=== PATIENT | female | born 1985 | race Caucasian/White ===

== ENCOUNTER → 2017-11-19 | Outpatient (REF) | payer BC ==
[2017-11-20 12:33] LABS: CHLAMYDIA DNA AMPLIFICATION NEGATIVE (NEGATIVE); GC DNA AMPLIFICATION NEGATIVE (NEGATIVE)
== END ==
LOC: M LAB REF 09:33
DX: R10.30 Lower abdominal pain, unspecified (principal)
CPT/HCPCS: 87186; 87591

== ENCOUNTER → 2017-11-20 | Outpatient (REF) | payer BC ==
[2017-11-20 18:31] LABS: BASO % 0.2 % (0.0-1.0); EOS # 0.1 10^3/uL (0.0-0.50); EOS % 0.5 % (0.0-3.0); HEMATOCRIT 32.6 % (36.0-47.0); HEMOGLOBIN 10.5 g/dl (12.0-15.5); IMMATURE GRANULOCYTE % 0.5 % (0-3.0); LYMPH # 1.6 10^3/uL (1.5-4.5); LYMPH % 16.4 % (24.0-44.0); MEAN CORPUSCULAR HEMOGLOBIN 28.6 pg (27.0-33.0); MEAN CORPUSCULAR HGB CONC 32.2 g/dl (32.0-36.5); MEAN CORPUSCULAR VOLUME 88.8 fl (80.0-96.0); MONO # 0.7 10^3/uL (0.0-0.8); MONO % 7.2 % (0.0-5.0); NEUTROPHILS # 7.5 10^3/uL (1.8-7.7); NEUTROPHILS % 75.2 % (36.0-66.0); PLATELET COUNT, AUTOMATED 204 10^3/uL (150-450); RED BLOOD COUNT 3.67 10^6/uL (4.00-5.40)
[2017-11-20 18:47] LABS: ALBUMIN 3.1 GM/DL (3.2-5.2); ALBUMIN/GLOBULIN RATIO 0.91 (1.00-1.93); ALKALINE PHOSPHATASE 68 U/L (45-117); ALT/SGPT 17 U/L (12-78); ANION GAP 7 MEQ/L (8-16); AST/SGOT 9 U/L (7-37); BILIRUBIN,TOTAL 0.3 MG/DL (0.2-1.0); BLOOD UREA NITROGEN 9 MG/DL (7-18); CALCIUM LEVEL 8.3 MG/DL (8.5-10.1); CARBON DIOXIDE LEVEL 25 MEQ/L (21-32); CHLORIDE LEVEL 109 MEQ/L (98-107); GLOMERULAR FILTRATION RATE > 60.0 (>60); GLUCOSE, FASTING 99 MG/DL (70-100); POTASSIUM SERUM 4.8 MEQ/L (3.5-5.1); SODIUM LEVEL 141 MEQ/L (136-145); TOTAL PROTEIN 6.5 GM/DL (6.4-8.2)
[2017-11-20 19:08] LABS: ERYTHROCYTE SEDIMENTATION RATE 62 mm/hr (0-20)
== END ==
LOC: M LAB REF 17:33
DX: R10.30 Lower abdominal pain, unspecified (principal)
CPT/HCPCS: 80053

== ENCOUNTER 2017-11-22 13:03 | Inpatient (IN) | payer BC ==
[~2017-11-22 13:03] MED LIST: ACETAMINOPHEN TAB 650MG DOSE (2X325MG) PO; MORPHINE 4 MG/ML 1ML VIAL/SYRINGE (J2270) IV; ONDANSETRON 4MG/2ML VIAL (J2405) IV
[2017-11-22] MEDS: NS 1,000 ML IV ×2 (13:45→15:32)
[2017-11-22] MEDS ORDERED: ONDANSETRON 4MG/2ML VIAL (J2405) IV (15:45)
[2017-11-22] MEDS: KETOROLAC 30 MG/ML VIAL (J1885) IV (16:03)
[2017-11-22] MEDS: cefTRIAXone SOD 1 GM in D5W MINI-BAG PLUS 50 ML IV (17:14)
[2017-11-22 17:21] LABS: BASO % 0.2 % (0.0-1.0); HEMATOCRIT 28.1 % (36.0-47.0); HEMOGLOBIN 9.3 g/dl (12.0-15.5); IMMATURE GRANULOCYTE % 0.7 % (0-3.0); LYMPH # 1.9 10^3/uL (1.5-4.5); LYMPH % 11.6 % (24.0-44.0); MEAN CORPUSCULAR HEMOGLOBIN 28.6 pg (27.0-33.0); MEAN CORPUSCULAR HGB CONC 33.1 g/dl (32.0-36.5); MEAN CORPUSCULAR VOLUME 86.5 fl (80.0-96.0); MONO # 1.1 10^3/uL (0.0-0.8); MONO % 6.5 % (0.0-5.0); NEUTROPHILS # 13.5 10^3/uL (1.8-7.7); PLATELET COUNT, AUTOMATED 206 10^3/uL (150-450); RED BLOOD COUNT 3.25 10^6/uL (4.00-5.40); RED CELL DISTRIBUTION WIDTH 13.7 % (11.5-14.5); WHITE BLOOD COUNT 16.7 10^3/uL (4.0-10.0)
[2017-11-22 17:32] LABS: FIBRINOGEN 785 MG/DL (221-452); INR 1.11; PROTHROMBIN TIME 14.5 SECONDS (12.1-14.4)
[2017-11-22 18:29] LABS: FREE THYROXINE INDEX 3.9 % (1.3-4.8); T UPTAKE 31 % (30-39); THYROXINE (T4) 12.6 UG/DL (4.5-12.0)
[2017-11-22 18:29] LABS: LIPASE 88 U/L (73-393)
[2017-11-22] MEDS: ACETAMINOPHEN TAB 650MG DOSE (2X325MG) PO (19:58)
[2017-11-22] MEDS ORDERED: cefTRIAXone SOD 1 GM in D5W MINI-BAG PLUS 50 ML IV (20:00)
[2017-11-22] MEDS: PROMETHAZINE INJ 25 MG/ML VIAL (J2550) IV (20:04)
[2017-11-23] MEDS: NS 1,000 ML IV ×3 (01:32→21:38)
[2017-11-23] MEDS: cefTRIAXone SOD 1 GM in D5W MINI-BAG PLUS 50 ML IV ×2 (03:21→16:16)
[2017-11-23] MEDS: KETOROLAC 30 MG/ML VIAL (J1885) IV (03:21)
[2017-11-23] MEDS: ACETAMINOPHEN TAB 650MG DOSE (2X325MG) PO ×4 (03:21→20:36)
[2017-11-23 05:53] LABS: APPEARANCE, URINE CLEAR (CLEAR); BACTERIA, URINE AUTO 1+ (NEGATIVE); BILIRUBIN, URINE AUTO NEGATIVE (NEGATIVE); BLOOD, URINE BLOOD NEGATIVE (NEGATIVE); COLOR, URINE YELLOW (YELLOW); GLUCOSE, URINE (UA) AUTO NEGATIVE (NEGATIVE); KETONE, URINE AUTO NEGATIVE (NEGATIVE); LEUKOCYTE ESTERASE, URINE AUTO NEGATIVE (NEGATIVE); NITRITE, URINE AUTO NEGATIVE (NEGATIVE); PROTEIN, URINE AUTO NEGATIVE (NEGATIVE); RBC, URINE AUTO 3 /HPF (0-3); SPECIFIC GRAVITY URINE AUTO 1.011 (1.002-1.035); SQUAMOUS EPITHELIAL CELL UR AU 0 /HPF (0-6); UROBILINOGEN, URINE AUTO 0.2 mg/dL (0.0-2.0); WBC, URINE AUTO 6 /HPF (0-3)
[2017-11-23 06:38] LABS: BASO % 0.2 % (0.0-1.0); EOS % 0.2 % (0.0-3.0); HEMATOCRIT 26.4 % (36.0-47.0); HEMOGLOBIN 8.5 g/dl (12.0-15.5); IMMATURE GRANULOCYTE % 0.7 % (0-3.0); LYMPH # 1.5 10^3/uL (1.5-4.5); LYMPH % 14.4 % (24.0-44.0); MEAN CORPUSCULAR HEMOGLOBIN 27.8 pg (27.0-33.0); MEAN CORPUSCULAR HGB CONC 32.2 g/dl (32.0-36.5); MEAN CORPUSCULAR VOLUME 86.3 fl (80.0-96.0); MONO # 0.9 10^3/uL (0.0-0.8); MONO % 8.3 % (0.0-5.0); NEUTROPHILS # 8.1 10^3/uL (1.8-7.7); NEUTROPHILS % 76.2 % (36.0-66.0); PLATELET COUNT, AUTOMATED 202 10^3/uL (150-450); RED BLOOD COUNT 3.06 10^6/uL (4.00-5.40); RED CELL DISTRIBUTION WIDTH 13.9 % (11.5-14.5); WHITE BLOOD COUNT 10.6 10^3/uL (4.0-10.0)
[2017-11-23 06:59] LABS: ALBUMIN 2.2 GM/DL (3.2-5.2); ALBUMIN/GLOBULIN RATIO 0.63 (1.00-1.93); ALKALINE PHOSPHATASE 58 U/L (45-117); ALT/SGPT 14 U/L (12-78); ANION GAP 9 MEQ/L (8-16); AST/SGOT 6 U/L (7-37); BILIRUBIN,TOTAL 0.1 MG/DL (0.2-1.0); BLOOD UREA NITROGEN 7 MG/DL (7-18); CALCIUM LEVEL 7.7 MG/DL (8.5-10.1); CARBON DIOXIDE LEVEL 22 MEQ/L (21-32); CHLORIDE LEVEL 114 MEQ/L (98-107); CREATININE FOR GFR 0.62 MG/DL (0.55-1.30); GLOMERULAR FILTRATION RATE > 60.0 (>60); GLUCOSE, FASTING 97 MG/DL (70-100); POTASSIUM SERUM 3.5 MEQ/L (3.5-5.1); SODIUM LEVEL 145 MEQ/L (136-145); TOTAL PROTEIN 5.7 GM/DL (6.4-8.2)
[2017-11-23] MEDS: [UNRECOGNIZED DRUG - OTHER] PO (08:59)
[2017-11-23] MEDS: FERROUS GLUCONATE 324 MG TAB PO (16:16)
[2017-11-24] MEDS: cefTRIAXone SOD 1 GM in D5W MINI-BAG PLUS 50 ML IV ×2 (04:08→16:26)
[2017-11-24] MEDS: ACETAMINOPHEN TAB 650MG DOSE (2X325MG) PO ×5 (04:17→23:46)
[2017-11-24 05:20] LABS: BASO % 0.3 % (0.0-1.0); EOS # 0.1 10^3/uL (0.0-0.50); EOS % 0.6 % (0.0-3.0); HEMOGLOBIN 8.7 g/dl (12.0-15.5); IMMATURE GRANULOCYTE % 0.5 % (0-3.0); LYMPH # 1.5 10^3/uL (1.5-4.5); LYMPH % 13.7 % (24.0-44.0); MEAN CORPUSCULAR HEMOGLOBIN 27.7 pg (27.0-33.0); MEAN CORPUSCULAR HGB CONC 32.2 g/dl (32.0-36.5); MONO # 0.7 10^3/uL (0.0-0.8); NEUTROPHILS # 8.5 10^3/uL (1.8-7.7); NEUTROPHILS % 78.9 % (36.0-66.0); PLATELET COUNT, AUTOMATED 250 10^3/uL (150-450); RED BLOOD COUNT 3.14 10^6/uL (4.00-5.40); RED CELL DISTRIBUTION WIDTH 13.9 % (11.5-14.5); WHITE BLOOD COUNT 10.8 10^3/uL (4.0-10.0)
[2017-11-24 05:38] LABS: ALBUMIN 2.3 GM/DL (3.2-5.2); ALBUMIN/GLOBULIN RATIO 0.59 (1.00-1.93); ALKALINE PHOSPHATASE 85 U/L (45-117); ALT/SGPT 17 U/L (12-78); ANION GAP 10 MEQ/L (8-16); AST/SGOT 9 U/L (7-37); BILIRUBIN,TOTAL 0.2 MG/DL (0.2-1.0); BLOOD UREA NITROGEN 4 MG/DL (7-18); CALCIUM LEVEL 7.8 MG/DL (8.5-10.1); CARBON DIOXIDE LEVEL 21 MEQ/L (21-32); CHLORIDE LEVEL 111 MEQ/L (98-107); CREATININE FOR GFR 0.57 MG/DL (0.55-1.30); GLOMERULAR FILTRATION RATE > 60.0 (>60); GLUCOSE, FASTING 109 MG/DL (70-100); POTASSIUM SERUM 3.4 MEQ/L (3.5-5.1); SODIUM LEVEL 142 MEQ/L (136-145); TOTAL PROTEIN 6.2 GM/DL (6.4-8.2)
[2017-11-24 07:05] LABS: RETICULOCYTE # 34.3 10^9/L (17-77); RETICULOCYTE % 1.1 % (0.5-1.5)
[2017-11-24 07:14] LABS: FERRITIN 78 NG/ML (8-252); IRON (FE) 26 UG/DL (50-170); MAGNESIUM LEVEL 1.6 MG/DL (1.8-2.4); PERCENT SATURATION 7.9 % (13.2-45.0); TOTAL IRON BINDING CAPACITY 330 UG/DL (250-450)
[2017-11-24 07:46] LABS: REASON FOR REVIEW RBC MORPHOLOGY; SLIDE REVIEW Report; SOURCE PERIPHERAL SMEAR
[2017-11-24] MEDS: FERROUS GLUCONATE 324 MG TAB PO (08:52)
[2017-11-24] MEDS: POTASSIUM CHLORIDE 10 MEQ SR TABLET PO (08:53)
[2017-11-24] MEDS: MAG SULF 1GM/100ML (MAG RUN) 1 GM in APPROPRIATE DILUENT 1 EA IV (08:53)
[2017-11-24] MEDS: [UNRECOGNIZED DRUG - OTHER] PO (08:53)
[2017-11-24 17:33] LABS: Lyme Disease IgG/IgM Antibodie <0.91 ISR (0.00-0.90); Lyme Disease IgM Ab Quantitati <0.80 index (0.00-0.79)
[2017-11-25 05:13] LABS: BASO % 0.4 % (0.0-1.0); EOS # 0.2 10^3/uL (0.0-0.50); EOS % 2.3 % (0.0-3.0); HEMATOCRIT 28.4 % (36.0-47.0); HEMOGLOBIN 9.2 g/dl (12.0-15.5); IMMATURE GRANULOCYTE % 0.8 % (0-3.0); LYMPH # 1.7 10^3/uL (1.5-4.5); LYMPH % 22.9 % (24.0-44.0); MEAN CORPUSCULAR HEMOGLOBIN 27.8 pg (27.0-33.0); MEAN CORPUSCULAR HGB CONC 32.4 g/dl (32.0-36.5); MEAN CORPUSCULAR VOLUME 85.8 fl (80.0-96.0); MONO # 0.6 10^3/uL (0.0-0.8); MONO % 7.6 % (0.0-5.0); NEUTROPHILS # 4.8 10^3/uL (1.8-7.7); PLATELET COUNT, AUTOMATED 273 10^3/uL (150-450); RED BLOOD COUNT 3.31 10^6/uL (4.00-5.40); RED CELL DISTRIBUTION WIDTH 13.7 % (11.5-14.5); WHITE BLOOD COUNT 7.3 10^3/uL (4.0-10.0)
[2017-11-25 05:31] LABS: ALBUMIN 2.3 GM/DL (3.2-5.2); ALBUMIN/GLOBULIN RATIO 0.53 (1.00-1.93); ALKALINE PHOSPHATASE 90 U/L (45-117); ALT/SGPT 27 U/L (12-78); ANION GAP 9 MEQ/L (8-16); AST/SGOT 15 U/L (7-37); BILIRUBIN,TOTAL 0.2 MG/DL (0.2-1.0); BLOOD UREA NITROGEN 6 MG/DL (7-18); CALCIUM LEVEL 8.1 MG/DL (8.5-10.1); CARBON DIOXIDE LEVEL 24 MEQ/L (21-32); CHLORIDE LEVEL 110 MEQ/L (98-107); CREATININE FOR GFR 0.63 MG/DL (0.55-1.30); GLOMERULAR FILTRATION RATE > 60.0 (>60); GLUCOSE, FASTING 82 MG/DL (70-100); POTASSIUM SERUM 3.7 MEQ/L (3.5-5.1); SODIUM LEVEL 143 MEQ/L (136-145); TOTAL PROTEIN 6.6 GM/DL (6.4-8.2)
[2017-11-25 08:47] LABS: TRANSFERRIN 203 mg/dL (200-370)
[2017-11-25] MEDS: ASCORBIC ACID 500 MG TAB PO (09:09)
[2017-11-25] MEDS: ACETAMINOPHEN TAB 650MG DOSE (2X325MG) PO (09:09)
[2017-11-25] MEDS: CEFUROXIME 500 MG TAB PO (09:09)
[2017-11-25] MEDS: FERROUS GLUCONATE 324 MG TAB PO (09:10)
[2017-11-25] MEDS: [UNRECOGNIZED DRUG - OTHER] PO (09:10)
[2017-11-26 11:12] LABS: ALBUMIN 2.93 GM/DL (3.29-5.55); ALBUMIN % 48.9 % (55.8-66.1); ALPHA-1-GLOBULIN % 9.9 % (2.9-4.9); ALPHA-1-GLOBULINS 0.59 GM/DL (0.17-0.41); ALPHA-2-GLOBULINS 0.95 GM/DL (0.42-0.99); ALPHA-2-GLOBULINS % 15.9 % (7.1-11.8); BETA-1-GLOBULINS 0.43 GM/DL (0.28-0.60); BETA-1-GLOBULINS % 7.1 % (4.7-7.2); BETA-2-GLOBULINS 0.34 GM/DL (0.19-0.55); BETA-2-GLOBULINS % 5.7 % (3.2-6.5); GAMMA GLOBULIN % 12.5 % (11.1-18.8); GAMMA GLOBULINS 0.75 GM/DL (0.65-1.58)
[2017-11-27 00:07] LABS: DEAMIDATED GLIADIN ABS, IgA 3 units (0-19); DEAMIDATED GLIADIN ABS, IgG 1 units (0-19); ENDOMYSIAL ANTIBODY IgA Negative (Negative); IMMUNOGLOBULIN A 134 mg/dL (87-352); t-TRANSGLUTAMINASE(tTG) IgA <2 U/mL (0-3); t-TRANSGLUTAMINASE(tTG) IgG <2 U/mL (0-5)
== END 2017-11-25 11:01 | disposition home or self-care (01) | DRG 724 ==
LOC: M PCU 13:03
DX: A69.20 Lyme disease, unspecified (principal); D68.9 Coagulation defect, unspecified; N39.0 Urinary tract infection, site not specified; N10 Acute pyelonephritis; D50.9 Iron deficiency anemia, unspecified; Z79.899 Other long term (current) drug therapy

== ENCOUNTER → 2017-12-11 | Outpatient (REF) | payer BC ==
[2017-12-11 11:49] LABS: BASO % 0.4 % (0.0-1.0); EOS # 0.3 10^3/uL (0.0-0.50); EOS % 4.6 % (0.0-3.0); HEMATOCRIT 36.3 % (36.0-47.0); HEMOGLOBIN 11.6 g/dl (12.0-15.5); IMMATURE GRANULOCYTE % 0.3 % (0-3.0); LYMPH # 1.9 10^3/uL (1.5-4.5); MEAN CORPUSCULAR HEMOGLOBIN 27.8 pg (27.0-33.0); MEAN CORPUSCULAR VOLUME 87.1 fl (80.0-96.0); MONO # 0.5 10^3/uL (0.0-0.8); MONO % 6.5 % (0.0-5.0); NEUTROPHILS # 4.3 10^3/uL (1.8-7.7); NEUTROPHILS % 61.2 % (36.0-66.0); PLATELET COUNT, AUTOMATED 327 10^3/uL (150-450); RED BLOOD COUNT 4.17 10^6/uL (4.00-5.40); RED CELL DISTRIBUTION WIDTH 14.7 % (11.5-14.5)
[2017-12-11 12:11] LABS: ALBUMIN 3.4 GM/DL (3.2-5.2); ALBUMIN/GLOBULIN RATIO 0.97 (1.00-1.93); ALKALINE PHOSPHATASE 83 U/L (45-117); ALT/SGPT 23 U/L (12-78); ANION GAP 7 MEQ/L (8-16); AST/SGOT 10 U/L (7-37); BILIRUBIN,TOTAL 0.4 MG/DL (0.2-1.0); BLOOD UREA NITROGEN 12 MG/DL (7-18); CALCIUM LEVEL 8.7 MG/DL (8.5-10.1); CARBON DIOXIDE LEVEL 28 MEQ/L (21-32); CHLORIDE LEVEL 106 MEQ/L (98-107); CHOLESTEROL LEVEL 183 MG/DL (<200); CHOLESTEROL RISK RATIO 3.267 (<5); CREATININE FOR GFR 0.81 MG/DL (0.55-1.30); GLOMERULAR FILTRATION RATE > 60.0 (>60); GLUCOSE, FASTING 80 MG/DL (70-100); HDL CHOLESTEROL 56 MG/DL (>40); IRON (FE) 50 UG/DL (50-170); LDL CHOLESTEROL 111.2 MG/DL (<100); NON-HDL-C 127 MG/DL; PERCENT SATURATION 11.6 % (13.2-45.0); POTASSIUM SERUM 4.8 MEQ/L (3.5-5.1); SODIUM LEVEL 141 MEQ/L (136-145); TOTAL IRON BINDING CAPACITY 430 UG/DL (250-450); TOTAL PROTEIN 6.9 GM/DL (6.4-8.2); TRIGLYCERIDES LEVEL 79 MG/DL (<150)
== END ==
LOC: M SFHCPLAZ 08:36
DX: N12 Tubulo-interstitial nephritis, not specified as acute or chronic (principal); D50.0 Iron deficiency anemia secondary to blood loss (chronic); Z13.220 Encounter for screening for lipoid disorders
CPT/HCPCS: 83550

== ENCOUNTER → 2019-01-21 | Outpatient (REF) | payer BC ==
[~2019-01-21] MED LIST changes: -ACETAMINOPHEN TAB 650MG DOSE (2X325MG) PO; +Acetaminophen Tab PO; +CEFU50TA PO; +FERR32TA PO; +HEPA1INJ23 SC; +HYDR-3713 PO; +KETO60IN IV; +LILL1TAB PO; -MORPHINE 4 MG/ML 1ML VIAL/SYRINGE (J2270) IV; +ONDA4VLL IV; -ONDANSETRON 4MG/2ML VIAL (J2405) IV; +PROM25AM IV; +ROCE1INJ6 IV; +VITA500T PO
[2019-01-21 16:50] LABS: BASO % 0.4 % (0.0-1.0); EOS # 0.3 10^3/uL (0.0-0.50); HEMOGLOBIN 13.9 g/dl (12.0-15.5); LYMPH # 2.7 10^3/uL (1.5-4.5); LYMPH % 34.7 % (24.0-44.0); MEAN CORPUSCULAR HEMOGLOBIN 30.5 pg (27.0-33.0); MEAN CORPUSCULAR HGB CONC 33.1 g/dl (32.0-36.5); MEAN CORPUSCULAR VOLUME 92.3 fl (80.0-96.0); MONO # 0.6 10^3/uL (0.0-0.8); MONO % 7.1 % (0.0-5.0); NEUTROPHILS # 4.2 10^3/uL (1.8-7.7); NEUTROPHILS % 53.4 % (36.0-66.0); PLATELET COUNT, AUTOMATED 245 10^3/uL (150-450); RED BLOOD COUNT 4.55 10^6/uL (4.00-5.40); WHITE BLOOD COUNT 7.8 10^3/uL (4.0-10.0)
[2019-01-21 17:06] LABS: ALBUMIN 3.6 GM/DL (3.2-5.2); ALT/SGPT 23 U/L (12-78); BILIRUBIN,TOTAL 0.4 MG/DL (0.2-1.0); BLOOD UREA NITROGEN 11 MG/DL (7-18); CARBON DIOXIDE LEVEL 28 MEQ/L (21-32); CHLORIDE LEVEL 107 MEQ/L (98-107); CHOLESTEROL LEVEL 186 MG/DL (<200); CHOLESTEROL RISK RATIO 3.795 (<5); CREATININE FOR GFR 0.85 MG/DL (0.55-1.30); GLOMERULAR FILTRATION RATE > 60.0 (>60); GLUCOSE, FASTING 81 MG/DL (70-100); HDL CHOLESTEROL 49 MG/DL (>40); IRON (FE) 79 UG/DL (50-170); LDL CHOLESTEROL 111 MG/DL (<100); NON-HDL-C 137 MG/DL; POTASSIUM SERUM 4.8 MEQ/L (3.5-5.1); SODIUM LEVEL 140 MEQ/L (136-145); TOTAL PROTEIN 6.8 GM/DL (6.4-8.2); TRIGLYCERIDES LEVEL 132 MG/DL (<150)
== END ==
LOC: M SFHCCAPE 07:48
PROVIDERS: ATTEND Physician Assistant
DX: Z00.00 Encounter for general adult medical examination without abnormal findings (principal)

== ENCOUNTER → 2019-07-30 | Outpatient (REF) | payer BC ==
[2019-07-30 11:54] LABS: HEMATOCRIT 39.6 % (36.0-47.0); HEMOGLOBIN 13.1 g/dl (12.0-15.5); MEAN CORPUSCULAR HGB CONC 33.1 g/dl (32.0-36.5); MEAN CORPUSCULAR VOLUME 90.6 fl (80.0-96.0); PLATELET COUNT, AUTOMATED 227 10^3/uL (150-450); RED BLOOD COUNT 4.37 10^6/uL (4.00-5.40); WHITE BLOOD COUNT 8.7 10^3/uL (4.0-10.0)
[2019-07-30 12:47] LABS: HEPATITIS B SURFACE ANTIGEN NEGATIVE (NEGATIVE); HEPATITIS C VIRUS ABY INDEX < 0.0 INDEX (<0.8); HIV 1&2 SCREEN CENTAUR NEGATIVE (NEGATIVE); RUBELLA IgG QUALITATIVE IMMUNE (IMMUNE)
[2019-07-30 13:42] LABS: CHLAMYDIA DNA AMPLIFICATION NEGATIVE (NEGATIVE); GC DNA AMPLIFICATION NEGATIVE (NEGATIVE)
== END ==
LOC: M PLALAB 08:22
PROVIDERS: ATTEND Advanced Practice Midwife
DX: Z34.01 Encounter for supervision of normal first pregnancy, first trimester (principal)

== ENCOUNTER → 2019-08-20 | Outpatient (REF) | payer BC | LOC: M PLALAB 11:17 | PROVIDERS: ATTEND Obstetrics & Gynecology | DX: Z34.01 Encounter for supervision of normal first pregnancy, first trimester (principal) ==

== ENCOUNTER → 2019-09-29 | Outpatient (CLI) | payer BC ==
[~2019-09-29] MED LIST changes: +VITA-243 PO; -VITA500T PO
== END ==
LOC: M WHC 11:18
PROVIDERS: ATTEND Advanced Practice Midwife
DX: Z53.9 Procedure and treatment not carried out, unspecified reason (principal); Z34.02 Encounter for supervision of normal first pregnancy, second trimester

== ENCOUNTER → 2019-10-01 | Outpatient (REF) | payer BC | LOC: M PLALAB 08:48 | PROVIDERS: ATTEND Advanced Practice Midwife | DX: O99.212 Obesity complicating pregnancy, second trimester (principal); Z3A.00 Weeks of gestation of pregnancy not specified ==

== ENCOUNTER → 2019-10-13 | Outpatient (CLI) | payer BC ==
--- NOTE | 2019-10-14 02:19 | REP ---
Clinical: Anatomical evaluation. Comparison: None . Findings: Examination demonstrates a single live intrauterine in cephalic presentation. motion is identified by technologist. Placenta is noted posterior fundal and grade I without evidence for placenta previa or abruption. Amniotic fluid volume is normal. Cervix measures 4.1 cm in length and appears closed. Nuchal cord noted. Gestational age by current measurements 18 weeks 5 days with LACHO 03/10/2020 . BPD 4.1 cm 18 weeks 1 day HC 15.9 cm 18 weeks 5 days AC 13.1 cm 18 weeks 5 days FL 3.1 cm 19 weeks 3 days HL 2.7 cm 18 weeks 5 days HC/AC ratio 1.21 Estimated weight 265 grams ( 53rd percentile). Anatomical assessment demonstrates normal structures including cranium, choroid plexus, cavum, cerebellum/posterior fossa, facial features, lungs, diaphragm, stomach, cord insertion/three-vessel cord, kidneys/bladder, spine, and extremities. Impression: 1. Single live intrauterine in cephalic presentation demonstrating appropriate estimated weight. 2. Nuchal cord noted. 3. Limited evaluation of the heart/ventricular outflow tracts may warrant reevaluation and follow-up.
== END ==
LOC: M WHC 13:47
PROVIDERS: ATTEND Advanced Practice Midwife
DX: Z34.02 Encounter for supervision of normal first pregnancy, second trimester (principal); Z36.89 Encounter for other specified antenatal screening; Z3A.18 18 weeks gestation of pregnancy

== ENCOUNTER → 2019-11-07 | Outpatient (CLI) | payer BC ==
--- NOTE | 2019-11-08 07:55 | REP ---
REASON: Followup four-chamber heart and ventricular outflow tracts. In addition, prior examination showed a nuchal cord. Multiple ultrasonographic images of the gravid uterus show a single living intrauterine gestation in the breech presentation. Doppler interrogation of the heart shows a heart rate of 142 beats per minute. The placenta is posterior and not low lying. The cord insertion was noted to be at the inferior edge of the placenta. The subjective amniotic fluid volume is within normal limits. The cervix measures 4.0 cm in length and is closed. Evaluation of the maternal adnexal spaces showed no abnormalities. CHART: BPD 5.1 cm = 21 weeks 3 days HC 19.3 cm = 21 weeks 4 days AC 16.9 cm = 21 weeks 6 days FL 3.6 cm = 21 weeks 2 days The estimated weight is 437 grams, which is at the 24th percentile for a 22-week 2-day gestational age. The four-chamber heart view and both right and left ventricular outflow tracts were seen to be within normal limits. IMPRESSION: Single living intrauterine gestation, as described above, with an estimated gestational age of 21 weeks 2 days via composite criteria and an estimated date of delivery of 03/17/2020 by today's exam. No anomalies were seen today. Findings as described above.
== END ==
LOC: M WHC 10:51
PROVIDERS: ATTEND Advanced Practice Midwife
DX: O99.212 Obesity complicating pregnancy, second trimester (principal)

== ENCOUNTER → 2019-12-02 | Outpatient (REF) | payer BC ==
[~2019-12-02] MED LIST changes: +ACET-683 PO; +IBUP80TA PO; +PRENTAB9 PO
[2019-12-02 15:21] LABS: HEMATOCRIT 36.6 % (36.0-47.0); HEMOGLOBIN 11.7 g/dl (12.0-15.5); MEAN CORPUSCULAR HEMOGLOBIN 29.8 pg (27.0-33.0); MEAN CORPUSCULAR VOLUME 93.4 fl (80.0-96.0); PLATELET COUNT, AUTOMATED 241 10^3/uL (150-450); RED BLOOD COUNT 3.92 10^6/uL (4.00-5.40); WHITE BLOOD COUNT 9.9 10^3/uL (4.0-10.0)
== END ==
LOC: M PLALAB 12:19
PROVIDERS: ATTEND Nurse Practitioner Women's Health
DX: O99.212 Obesity complicating pregnancy, second trimester (principal); Z3A.00 Weeks of gestation of pregnancy not specified; E66.9 Obesity, unspecified
CPT/HCPCS: 36415; 82950; 85027; 86850; 86900; 86901; J2790

== ENCOUNTER → 2019-12-10 | Outpatient (CLI) | payer BC ==
--- NOTE | 2019-12-10 15:26 | REP ---
OB ULTRASOUND: Real-time sonographic evaluation of the gravid uterus performed. There is a single living intrauterine gestation. The estimated gestational age is 26 weeks 6 days, EDC 03/11/2020. Today's measurements indicate appropriate growth. Biometry and Growth: BPD 66 mm = 26 weeks 5 days, 47th percentile HC 243 mm = 26 weeks 3 days, 39th percentile AC 220 mm = 26 weeks 3 days, 40th percentile FL 48 mm = 26 weeks 1 day, 32nd percentile HC/AC ratio 1.11, normal range 1.0 to 1.9. Estimated weight 920 grams, 28th percentile. Cervical length: Closed and measures 3.6 cm in length. heart rate: 132 beats per minute. position: Vertex. Placenta: Posterior and fundal and grade 0 with no previa or abruption. Amniotic fluid: Within normal limits, KEIRA 12.5 within normal range of 9.5 to 22.6. Once again, the placental cord insertion appears to be at the inferior edge of the placenta.
== END ==
LOC: M WHC 10:33
PROVIDERS: ATTEND Nurse Practitioner Women's Health
DX: O43.192 Other malformation of placenta, second trimester (principal); Z3A.25 25 weeks gestation of pregnancy

== ENCOUNTER → 2020-02-13 | Outpatient (REF) | payer BC | LOC: M SFHCWAGY 13:33 | PROVIDERS: ATTEND Obstetrics & Gynecology | DX: Z34.83 Encounter for supervision of other normal pregnancy, third trimester (principal); Z36.85 Encounter for antenatal screening for Streptococcus B ==

== ENCOUNTER 2020-03-05 11:49 | Inpatient (IN) | payer BC ==
[~2020-03-05] VITALS: Ht 162.6 cm; Wt 116.2 kg
[2020-03-05] VITALS (24 sets, daily range): BP systolic 119–151; BP diastolic 65–98
[~2020-03-05 11:49] MED LIST changes: -ACET-683 PO; -IBUP80TA PO; -PRENTAB9 PO
[2020-03-05] MEDS ORDERED: PRENTAB9 PO (12:13)
[2020-03-05 13:30] LABS: CREATININE,RANDOM URINE 30.9 MG/DL; TOTAL PROTEIN,RANDOM URINE 7.3 MG/DL (0.0-12.0)
[2020-03-05 13:39] LABS: HEMATOCRIT 37.9 % (36.0-47.0); MEAN CORPUSCULAR HEMOGLOBIN 28.6 pg (27.0-33.0); MEAN CORPUSCULAR HGB CONC 31.7 g/dl (32.0-36.5); MEAN CORPUSCULAR VOLUME 90.2 fl (80.0-96.0); WHITE BLOOD COUNT 9.8 10^3/uL (4.0-10.0)
[2020-03-05 13:58] LABS: ALT/SGPT 24 U/L (12-78); BILIRUBIN,TOTAL 0.3 MG/DL (0.2-1.0); CREATININE FOR GFR 0.58 MG/DL (0.55-1.30); GLOMERULAR FILTRATION RATE > 60.0 (>60); LDH LACTATE DEHYDROGENASE 271 U/L (84-246); URIC ACID 4.3 MG/DL (2.6-6.0)
[2020-03-05 14:13] LABS: PLATELET COUNT, AUTOMATED 130 10^3/uL (150-450)
[2020-03-05] MEDS: miSOPROStol 50 MCG 1/2 TAB (S0191) PO SCH ×3 (15:46→23:54)
[2020-03-06] VITALS (56 sets, daily range): BP systolic 100–149; BP diastolic 55–93
[2020-03-06] MEDS: miSOPROStol 50 MCG 1/2 TAB (S0191) PO SCH (04:08)
[2020-03-06] MEDS ORDERED: OXYTOCIN DRIP 30 UNITS in IV 1 EA IV SCH (09:30)
[2020-03-06] MEDS: LR 1,000 ML IV SCH ×2 (09:53→15:20)
--- NOTE | 2020-03-06 10:39 | IPNPDOC ---
Obstetrical Progress Note Date of Service Mar 06, 2020 Subjective No complaints. Mild cramps Objective Vital Signs Date Time Temp Pulse Resp B/P (MAP) Pulse Ox O2 Delivery O2 Flow Rate FiO2 03/06/20 09:54 72 16 111/75 (87) 03/06/20 07:44 96.9 Assessment Heart Rate (FHR): 130 Variability: Moderate Accelerations: Positive Decelerations: None Heart Rate Tracing: Category I Tocometer Contractions: Yes Frequency: irregular, every 3-7 min. Sterile Vaginal Examination Dilation: 2cm Effacement (%): 70% Station: -2 Cervical Consistency: Soft Cervical Position: Posterior Postion/Presentation: Cephalic presentation Assessment and Plan Age: 34 : 1 Weeks & Days 39 4/7 with gestaional hypertension, labor induction Status: Reassuring Additional Comments Blood pressure stable. Pt has received 4 doses Misoprostol. Cervix not reasonable for Catheter placement. Plan to start Pitocin URSZULA SZYMANSKI MD Mar 06, 2020 10:39
[2020-03-06] MEDS ORDERED: ACETAMINOPHEN 500 MG TAB PO PRN ×2 (12:45→23:45)
[2020-03-06] MEDS ORDERED: FENTANYL 2MCG/ML ROPIVACAINE 0.2% IN 0.9% NACL 100ML IVBAG As Ordered ONE (18:58)
[2020-03-06 19:31] LABS: HEMATOCRIT 37.1 % (36.0-47.0); HEMOGLOBIN 11.9 g/dl (12.0-15.5); MEAN CORPUSCULAR HEMOGLOBIN 28.1 pg (27.0-33.0); MEAN CORPUSCULAR HGB CONC 32.1 g/dl (32.0-36.5); MEAN CORPUSCULAR VOLUME 87.5 fl (80.0-96.0); PLATELET COUNT, AUTOMATED 204 10^3/uL (150-450); RED BLOOD COUNT 4.24 10^6/uL (4.00-5.40); WHITE BLOOD COUNT 11.9 10^3/uL (4.0-10.0)
[2020-03-06] MEDS ORDERED: REFRIGERATOR IV KEYS XX PRN (21:45)
[2020-03-06] MEDS ORDERED: ONDANSETRON 4MG/2ML VIAL IV PRN ×2 (21:45→23:45)
[2020-03-06] MEDS ORDERED: FENTANYL/ROPIVACAINE/NACL BAG 100 ML EPIDURAL SCH (21:45)
[2020-03-06] MEDS ORDERED: diphenhydrAMINE 50MG/ML VIAL (J1200) IV PRN (21:45)
[2020-03-06] MEDS ORDERED: EPIDURAL COMMENT XX SCH (21:45)
[2020-03-06] MEDS ORDERED: EPIDURAL/PCA KEYS XX PRN (21:45)
[2020-03-06] MEDS ORDERED: NALOXONE INJ 0.4MG/1ML VIAL (J2310 PER 1MG) IV PRN (21:45)
[2020-03-06] MEDS ORDERED: LACTATED RINGER'S 1000 ML IV PRN (21:45)
[2020-03-06] MEDS: ePHEDrine SULFATE 25 MG/5 ML(5MG/ML) SYRINGE IV PRN ×3 (21:58→22:05)
[2020-03-06] MEDS ORDERED: METHYLERGONOVINE MALEATE 0.2 MG TAB PO PRN (23:45)
[2020-03-06] MEDS ORDERED: RHOGAM 300 MCG (1500 IU) INJ (J2790) IM SCH (23:45)
[2020-03-06] MEDS ORDERED: DIBUCAINE 1% OINTMENT 30GM TOP PRN (23:45)
[2020-03-06] MEDS ORDERED: OXYTOCIN DRIP 30 UNITS in IV 1 EA IV ONE (23:45)
[2020-03-06] MEDS ORDERED: ACETAMINOPHEN TAB 650MG DOSE (2X325MG) PO PRN (23:45)
[2020-03-06] MEDS ORDERED: MEASLES,MUMPS,RUBELLA VACCINE INJ (MMR-II) (90707) SC SCH (23:45)
[2020-03-06] MEDS ORDERED: IBUPROFEN 600MG TAB PO PRN (23:45)
[2020-03-06] MEDS ORDERED: DOCUSATE SODIUM 100 MG CAP PO PRN (23:45)
[2020-03-06] MEDS ORDERED: IBUPROFEN 800 MG TAB PO PRN (23:45)
--- NOTE | 2020-03-06 23:49 | DNPDOC ---
[facility] Delivery Note Delivery Note DATE OF DELIVERY: 03/06/2020 PREDELIVERY DIAGNOSIS: 39 4/7 week, gestational hypertension, induction. POST DELIVERY DIAGNOSIS: Delivered. PROCEDURE: Spontaneous vaginal delivery SHIELD RUNNER: Dr. Urszula Szymanski MD ANESTHESIA: epidural ESTIMATED BLOOD LOSS: 300 mL. FINDINGS: 6 pound 12 ounce male , Score 8/8, nuchal cord times 2. DELIVERY SUMMARY: Patient is a 34-year-old 1 now para 1 who was admitted to labor and delivery for induction due to gestational hypertension. After a one hour second stage of labor she had spontaneous vaginal delivery of a 6 lb. 12 oz. Male . Tight nuchal cord x 2 clamped and cut on the perineum. Shoulders delivered with ease. Placenta delivered by manual extraction. Pt received IV Pitocin immediately after delivery of the placenta. No vaginal lacerations present. umbilical cord blood gas obtained. sponge and needle counts correct. URSZULA SZYMANSKI MD Mar 06, 2020 23:49
[2020-03-06 23:50] LABS: CORD GAS ABE A -9.5; CORD GAS ABE V -8.7; CORD GAS HCO3 A 19.6 MEQ/L; CORD GAS HCO3 V 18.6 MEQ/L; CORD GAS O2 SAT A 41.6 %; CORD GAS O2 SAT V 64.6 %; CORD GAS PCO2 A 55.6 mmHg; CORD GAS PCO2 V 45.1 mmHg; CORD GAS PH A 7.165 UNITS; CORD GAS PH V 7.233 UNITS; CORD GAS PO2 A 24.6 mmHg; CORD GAS SBC A 15.8 MEQ/L; CORD GAS SBC V 16.9 MEQ/L; CORD GAS TCO2 A 21.3 MEQ/L
[2020-03-07] VITALS (7 sets, daily range): BP systolic 110–148; BP diastolic 61–95
[2020-03-07] MEDS: PRENATAL VITAMINS CHEWABLE TABLET PO SCH (09:16)
--- NOTE | 2020-03-07 16:55 | HPE ---
DATE OF ADMISSION: 03/05/2020 SUBJECTIVE: 34-year-old 1, para 0 at 39 3/7 weeks of gestation, estimated date of confinement (EDC) of 03/09/2020 confirmed with first trimester ultrasound. She presents to labor and delivery today following routine appointment in the office and noted to have elevated blood pressure. She denies contractions, leakage of fluid and vaginal bleeding. The fetus is active. Her care was initiated in first trimester and adequate. course complicated by morbid obesity and todays diagnosis of gestational hypertension. OBSTETRIC HISTORY: Current . OB LABORATORY: O negative. Antibody screen negative. HIV negative. Hepatitis B surface antigen negative. Hepatitis C antibody nonreactive. RPR nonreactive. Rubella immune. Gonorrhea and chlamydia negative. Urine culture and sensitivity, no growth. Gestational diabetic screen 88. GBS negative. PAST MEDICAL HISTORY: Anemia. PAST SURGICAL HISTORY: Tonsillectomy FAMILY HISTORY: Preeclampsia and cardiac disease. SOCIAL HISTORY: She is . Nonsmoker. Denies alcohol and drug use. No history of any sexually transmitted infected. Denies history of abuse. ALLERGIES: Coconut. CURRENT MEDICATIONS: vitamins. OBJECTIVE: Blood pressure (BP) 143/90, pulse 82, respirations 18, temperature 97.4. Alert and oriented times three. Abdomen: Gravid. heart rate 125 with moderate variability. Positive accelerations. No decelerations. No pattern of regular contractions. Vaginal examination: 1 cm dilated, 50% efface, minus 3 station. Posterior moderate, no show. Cephalic presentation. Estimated weight 6.5 to 7 pounds. Preeclamptic labs returned platelets of 130, left ventricular hypertrophy (LVH) mildly elevated at 271. Spot urine for protein 0.23. ASSESSMENT: Intrauterine at 39 3/7 weeks, heart rate category 1, gestational hypertension. PLAN: Admit the patient to labor and delivery for induction labor per consult with Dr. Rudi Muller. Risks, benefits and alternatives reviewed. All questions were answered. Plan to start misoprostol for cervical ripening. Routine labs. Out of bed at [facility]. The patient has been verbally consented for emergency surgery and blood products if they are necessary. I do anticipate cervical ripening, spontaneous labor and a vaginal delivery. Will repeat complete blood count (CBC). Provide epidural if the patient does require epidural for labor coping. MTDD
[2020-03-08 06:14] VITALS: BP 143/80
[2020-03-08] MEDS ORDERED: ACET-683 PO (07:51)
[2020-03-08] MEDS ORDERED: IBUP80TA PO (07:51)
[2020-03-08] MEDS: PRENATAL VITAMINS CHEWABLE TABLET PO SCH (10:35)
== END 2020-03-08 18:47 | disposition home or self-care (01) | DRG 560 ==
LOC: M LDO 11:49 → M LDI 15:05 → M OBS 03-07 01:57
PROVIDERS: ADMIT Advanced Practice Midwife; ATTEND Specialist
PROC: 3E0P7GC Introduction of Other Therapeutic Substance into Female Reproductive, Via Natural or Artificial Opening (ICD-10-PCS; 2020-03-05)
PROC: 10E0XZZ Delivery of Products of Conception, External Approach (ICD-10-PCS; principal; 2020-03-06)
DX: O13.4 Gestational [pregnancy-induced] hypertension without significant proteinuria, complicating childbirth (principal); Z3A.39 39 weeks gestation of pregnancy; O99.214 Obesity complicating childbirth; E66.01 Morbid (severe) obesity due to excess calories; O69.1XX0 Labor and delivery complicated by cord around neck, with compression, not applicable or unspecified; Z37.0 Single live birth

== ENCOUNTER → 2022-02-27 | Outpatient (REF) | payer BC ==
[~2022-02-27] MED LIST changes: +ACET-683 PO; +IBUP80TA PO; +PRENTAB9 PO
== END ==
LOC: M PLALAB 10:24
PROVIDERS: ATTEND Advanced Practice Midwife
DX: Z34.91 Encounter for supervision of normal pregnancy, unspecified, first trimester (principal)

== ENCOUNTER → 2022-03-06 | Outpatient (REF) | payer BC ==
[2022-03-06 17:34] LABS: HEMATOCRIT 37.2 % (36.0-47.0); HEMOGLOBIN 12.1 g/dl (12.0-15.5); MEAN CORPUSCULAR HEMOGLOBIN 29.5 pg (27.0-33.0); MEAN CORPUSCULAR HGB CONC 32.5 g/dl (32.0-36.5); MEAN CORPUSCULAR VOLUME 90.7 fl (80.0-96.0); PLATELET COUNT, AUTOMATED 215 10^3/uL (150-450)
[2022-03-06 18:11] LABS: ALT/SGPT 19 U/L (12-78); BILIRUBIN,TOTAL 0.3 MG/DL (0.2-1.0); CREATININE FOR GFR 0.65 MG/DL (0.55-1.30); GLOMERULAR FILTRATION RATE > 60.0 (>60); LDH LACTATE DEHYDROGENASE 165 U/L (84-246); URIC ACID 2.6 MG/DL (2.6-6.0)
[2022-03-06 18:55] LABS: GC DNA AMPLIFICATION NEGATIVE (NEGATIVE)
[2022-03-06 19:18] LABS: HEPATITIS C VIRUS ABY INDEX < 0.0 INDEX (<0.8)
== END ==
LOC: M LABDRAWC 16:58
PROVIDERS: ATTEND Advanced Practice Midwife
DX: Z34.91 Encounter for supervision of normal pregnancy, unspecified, first trimester (principal)

== ENCOUNTER → 2022-04-25 | Outpatient (CLI) | payer BC | LOC: M WHC 08:36 | PROVIDERS: ATTEND Specialist | DX: Z34.82 Encounter for supervision of other normal pregnancy, second trimester (principal) ==

== ENCOUNTER → 2022-05-11 | Outpatient (CLI) | payer BC | LOC: M WHC 06:47 | PROVIDERS: ATTEND Specialist | DX: Z36.2 Encounter for other antenatal screening follow-up (principal) ==

== ENCOUNTER → 2022-05-31 | Outpatient (CLI) | payer BC ==
[2022-05-31 14:49] LABS: HEMATOCRIT 35.3 % (36.0-47.0); HEMOGLOBIN 11.3 g/dl (12.0-15.5); MEAN CORPUSCULAR HEMOGLOBIN 29.9 pg (27.0-33.0); MEAN CORPUSCULAR VOLUME 93.4 fl (80.0-96.0); PLATELET COUNT, AUTOMATED 228 10^3/uL (150-450); RED BLOOD COUNT 3.78 10^6/uL (4.00-5.40); WHITE BLOOD COUNT 11.3 10^3/uL (4.0-10.0)
[2022-05-31 16:24] LABS: GC DNA AMPLIFICATION NEGATIVE (NEGATIVE)
== END ==
LOC: M PLALAB 09:56
PROVIDERS: ATTEND Obstetrics & Gynecology
DX: O09.512 Supervision of elderly primigravida, second trimester (principal)

== ENCOUNTER 2022-08-11 20:27 | Outpatient (CLI) | payer BC ==
[2022-08-11] VITALS (14 sets, daily range): BP systolic 101–161; BP diastolic 53–106
[~2022-08-11] VITALS: Ht 160 cm; Wt 111.9 kg
[2022-08-11] MEDS ORDERED: ASPI81CH33 PO (20:49)
[2022-08-11] MEDS ORDERED: TUMS500C PO (20:49)
[2022-08-11] MEDS ORDERED: HOME MED LIST COMPLETE! XX SCH (20:50)
[2022-08-11 22:25] LABS: TOTAL PROTEIN,RANDOM URINE 13.1 MG/DL (0.0-14.0)
[2022-08-11 22:30] LABS: CREATININE,RANDOM URINE 69.7 MG/DL
[2022-08-11 23:20] LABS: URIC ACID 3.5 MG/DL (3.1-7.8)
[2022-08-11 23:22] LABS: HEMATOCRIT 33.9 % (36.0-47.0); HEMOGLOBIN 11.1 g/dl (12.0-15.5); MEAN CORPUSCULAR HEMOGLOBIN 29.1 pg (27.0-33.0); MEAN CORPUSCULAR HGB CONC 32.7 g/dl (32.0-36.5); PLATELET COUNT, AUTOMATED 209 10^3/uL (150-450); RED BLOOD COUNT 3.81 10^6/uL (4.00-5.40); WHITE BLOOD COUNT 11.5 10^3/uL (4.0-10.0)
[2022-08-11 23:23] LABS: ALT/SGPT 59 U/L (7.0-40); AST/SGOT 33 U/L (<34); BILIRUBIN,TOTAL 0.4 MG/DL (0.3-1.2); GLOMERULAR FILTRATION RATE > 60.0 (>60); LDH LACTATE DEHYDROGENASE 178 U/L (120-246)
[2022-08-11] MEDS ORDERED: ACETAMINOPHEN 500 MG TAB PO ONE (23:50)
[2022-08-12 00:04] VITALS: BP 150/106
[2022-08-12 00:21] VITALS: BP 158/93
[2022-08-12 00:35] VITALS: BP 135/89
[2022-08-12] MEDS ORDERED: BETAMETHASONE SOLUSPAN 6MG/ML 5ML VIAL IM SCH (01:45)
== END 2022-08-12 02:00 | disposition home or self-care (01) ==
LOC: M LDO 20:27
PROVIDERS: ATTEND Advanced Practice Midwife
DX: O13.3 Gestational [pregnancy-induced] hypertension without significant proteinuria, third trimester (principal); O09.513 Supervision of elderly primigravida, third trimester; Z3A.34 34 weeks gestation of pregnancy
CPT/HCPCS: 36415; 59025; 82247; 82565; 82570; 83615; 84156; 84450; 84460; 84550; 85027; 96372; G0463; J0702

== ENCOUNTER 2022-08-12 22:01 | Outpatient (CLI) | payer BC ==
[~2022-08-12] VITALS: Ht 160 cm; Wt 111.3 kg
[~2022-08-12 22:01] MED LIST changes: +ASPI81CH33 PO; +TUMS500C PO
[2022-08-12] MEDS ORDERED: BETAMETHASONE SOLUSPAN 6MG/ML 5ML VIAL IM ONE (22:35)
[2022-08-12] MEDS ORDERED: HOME MED LIST COMPLETE! XX SCH (22:35)
[2022-08-12 22:36] VITALS: BP 138/79
== END 2022-08-12 23:30 | disposition home or self-care (01) ==
LOC: M LDO 22:01
PROVIDERS: ATTEND Obstetrics & Gynecology
DX: O13.3 Gestational [pregnancy-induced] hypertension without significant proteinuria, third trimester (principal); O09.513 Supervision of elderly primigravida, third trimester; Z3A.34 34 weeks gestation of pregnancy
CPT/HCPCS: 59025; 96372; G0463; J0702

== ENCOUNTER → 2022-08-14 | Outpatient (REF) | payer BC | LOC: M SFHCWAGY 12:57 | PROVIDERS: ATTEND Advanced Practice Midwife | DX: O13.9 Gestational [pregnancy-induced] hypertension without significant proteinuria, unspecified trimester (principal) ==

== ENCOUNTER 2022-08-29 10:45 | Inpatient (IN) | payer BC ==
[~2022-08-29] VITALS: Ht 160 cm; Wt 111.4 kg
[2022-08-29] VITALS (9 sets, daily range): BP systolic 114–143; BP diastolic 56–88
[2022-08-29] MEDS ORDERED: LIDOCAINE 1% MDV 20ML VIAL INFIL PRN (12:35)
[2022-08-29] MEDS ORDERED: OXYTOCIN DRIP 30 UNITS in IV 1 EA IV PRN (12:35)
[2022-08-29] MEDS: miSOPROStol 50MCG 1/2 TABLET SL SCH ×3 (13:02→21:36)
[2022-08-29 14:47] LABS: HEMATOCRIT 34.7 % (36.0-47.0); HEMOGLOBIN 11.2 g/dl (12.0-15.5); MEAN CORPUSCULAR HEMOGLOBIN 28.6 pg (27.0-33.0); MEAN CORPUSCULAR HGB CONC 32.3 g/dl (32.0-36.5); MEAN CORPUSCULAR VOLUME 88.7 fl (80.0-96.0); PLATELET COUNT, AUTOMATED 192 10^3/uL (150-450); RED BLOOD COUNT 3.91 10^6/uL (4.00-5.40); WHITE BLOOD COUNT 10.6 10^3/uL (4.0-10.0)
[2022-08-30] VITALS (51 sets, daily range): BP systolic 66–150; BP diastolic 29–89
[2022-08-30] MEDS: miSOPROStol 50MCG 1/2 TABLET SL SCH (01:48)
[2022-08-30] MEDS ORDERED: OXYTOCIN DRIP 30 UNITS in IV 1 EA IV SCH ×5 (06:10→17:15)
[2022-08-30] MEDS: LR 1,000 ML IV SCH ×3 (09:36→16:36)
[2022-08-30] MEDS ORDERED: LR 500 ML IV PRN (15:15)
[2022-08-30] MEDS ORDERED: ONDANSETRON 4MG 2ML VIAL IV PRN (15:15)
[2022-08-30] MEDS ORDERED: FENTANYL/ROPIVACAINE/NACL BAG 100 ML EPIDURAL SCH (15:15)
[2022-08-30] MEDS ORDERED: NALOXONE INJ 0.4MG/1ML VIAL IV PRN (15:15)
[2022-08-30] MEDS ORDERED: EPIDURAL/PCA KEYS XX PRN (15:15)
[2022-08-30] MEDS ORDERED: ePHEDrine SULFATE 25 MG/5 ML(5MG/ML) SYRINGE IVP PRN (15:15)
[2022-08-30] MEDS ORDERED: diphenhydrAMINE 50MG/ML VIAL IV PRN (15:15)
[2022-08-30] MEDS ORDERED: DIBUCAINE 1% OINTMENT 30GM TOP PRN (17:15)
[2022-08-30] MEDS ORDERED: ACETAMINOPHEN TAB 650MG DOSE (2X325MG) PO PRN (17:15)
[2022-08-30] MEDS ORDERED: RHOGAM 300MCG (1500IU) INJ IM SCH (17:15)
[2022-08-30] MEDS ORDERED: ACETAMINOPHEN 500 MG TAB PO PRN (17:15)
[2022-08-30] MEDS ORDERED: IBUPROFEN 600MG TAB PO PRN (17:15)
[2022-08-30] MEDS ORDERED: DOCUSATE SODIUM 100MG CAPSULE PO PRN (17:15)
[2022-08-30] MEDS ORDERED: IBUPROFEN 800 MG TAB PO PRN (17:15)
[2022-08-30 19:17] LABS: HIV 1&2 SCREEN ATELLICA NEGATIVE (NEGATIVE)
[2022-08-31 06:00] VITALS: BP 113/69
[2022-08-31] MEDS: PRENATAL VITAMINS CHEWABLE TABLET PO SCH (09:00)
[2022-08-31 18:00] VITALS: BP 142/85
[2022-09-01 06:20] VITALS: BP 153/82
[2022-09-01] MEDS ORDERED: MEASLES,MUMPS,RUBELLA VACCINE INJ (MMR-II) SC.IMMUN ONE (09:00)
[2022-09-01] MEDS ORDERED: ANUSOL HC CREAM 30GM TOP SCH (09:00)
[2022-09-01] MEDS: PRENATAL VITAMINS CHEWABLE TABLET PO SCH (10:03)
[2022-09-01 11:44] VITALS: BP 135/87
== END 2022-09-01 12:50 | disposition home or self-care (01) | DRG 560 ==
LOC: M LDI 12:06 → M OBS 08-30 20:46
PROVIDERS: ADMIT Specialist; ATTEND Advanced Practice Midwife
PROC: 3E0P7GC Introduction of Other Therapeutic Substance into Female Reproductive, Via Natural or Artificial Opening (ICD-10-PCS; 2022-08-29)
PROC: 10E0XZZ Delivery of Products of Conception, External Approach (ICD-10-PCS; principal; 2022-08-30)
DX: O13.4 Gestational [pregnancy-induced] hypertension without significant proteinuria, complicating childbirth (principal); Z3A.37 37 weeks gestation of pregnancy; Z91.018 Allergy to other foods; Z79.82 Long term (current) use of aspirin; Z37.0 Single live birth

== ENCOUNTER → 2024-04-14 | Outpatient (REF) | payer BC ==
[2024-04-14 18:22] LABS: BASO % 0.3 % (0.0-1.0); EOS # 0.4 10^3/uL (0.0-0.5); EOS % 3.7 % (0.0-3.0); HEMATOCRIT 39.7 % (36.0-47.0); LYMPH # 2.1 10^3/uL (1.5-5.0); LYMPH % 21.6 % (24.0-44.0); MEAN CORPUSCULAR HEMOGLOBIN 29.9 pg (27.0-33.0); MEAN CORPUSCULAR HGB CONC 32.7 g/dl (32.0-36.5); MEAN CORPUSCULAR VOLUME 91.3 fl (80.0-96.0); MONO # 0.5 10^3/uL (0.0-0.8); MONO % 5.4 % (2.0-8.0); NEUTROPHILS # 6.8 10^3/uL (1.5-8.5); NEUTROPHILS % 68.8 % (36.0-66.0); PLATELET COUNT, AUTOMATED 255 10^3/uL (150-450); RED BLOOD COUNT 4.35 10^6/uL (4.00-5.40); WHITE BLOOD COUNT 9.9 10^3/uL (4.0-10.0)
[2024-04-14 18:44] LABS: THYROID STIMULATING HORMONE 1.131 uIU/ML (0.55-4.78)
[2024-04-14 18:46] LABS: FREE T4 1.08 NG/DL (0.89-1.76)
[2024-04-14 18:48] LABS: ALBUMIN 3.9 G/DL (3.2-5.2); ALKALINE PHOSPHATASE 77 U/L (35-104); ALT/SGPT 14 U/L (7.0-40); AST/SGOT < 8 U/L (<34); BILIRUBIN,TOTAL 0.3 MG/DL (0.3-1.2); BLOOD UREA NITROGEN 12 MG/DL (9-23); CALCIUM LEVEL 9.8 MG/DL (8.5-10.1); CARBON DIOXIDE LEVEL 27 MMOL/L (20-31); CHLORIDE LEVEL 106 MMOL/L (98-107); CHOLESTEROL LEVEL 177 MG/DL (<200); GLOMERULAR FILTRATION RATE > 60.0 (>60); GLUCOSE, FASTING 81 MG/DL (60-100); HDL CHOLESTEROL 55.2 MG/DL (>40); LDL CHOLESTEROL 98.4 MG/DL (<100); MAGNESIUM LEVEL 1.8 MG/DL (1.8-2.4); NON-HDL-C 121.8 MG/DL; POTASSIUM SERUM 4.8 MMOL/L (3.5-5.1); SODIUM LEVEL 140 MMOL/L (136-145); TOTAL PROTEIN 6.9 G/DL (5.7-8.2); TRIGLYCERIDES LEVEL 117 MG/DL (<150)
[2024-04-14 18:52] LABS: HEMOGLOBIN A1c 4.8 % (4.0-6.0)
== END ==
LOC: M SFHCCLAY 10:22
PROVIDERS: ATTEND Physician Assistant Medical
DX: G43.009 Migraine without aura, not intractable, without status migrainosus (principal); R53.83 Other fatigue; Z13.1 Encounter for screening for diabetes mellitus; Z13.220 Encounter for screening for lipoid disorders